=== PATIENT | male | born 1990 | race Two or more races ===

== ENCOUNTER 2020-11-20 12:13 | Emergency (ER) | payer OTHER ==
[~2020-11-20] VITALS: Ht 180.3 cm; Wt 113.4 kg
[~2020-11-20 12:13] MED LIST: CYCL10 PO; HYDACE5 PO; MAGCIT300 PO; Norco 5-325 Ta1 EACH PO; OMEP40CA12 PO; OXYACE5T PO; RANI150 PO
== END 2020-11-20 12:30 | disposition home or self-care (01) ==
LOC: ER 12:13
DX: S44.92XA Injury of unspecified nerve at shoulder and upper arm level, left arm, initial encounter (principal); G62.0 Drug-induced polyneuropathy; T50.B95A Adverse effect of other viral vaccines, initial encounter; M79.10 Myalgia, unspecified site; W46.0XXA Contact with hypodermic needle, initial encounter
CPT/HCPCS: 99283

== ENCOUNTER → 2021-09-17 | Outpatient (CLI) | payer OTHER | END | disposition home or self-care (01) | LOC: LAB 17:00 → LAB SHORT 17:00 | DX: L08.9 Local infection of the skin and subcutaneous tissue, unspecified (principal) | CPT/HCPCS: 87070; 87205 ==

== ENCOUNTER → 2022-03-14 | Outpatient (CLI) | payer OTHER | END | disposition home or self-care (01) | LOC: LAB SHORT 09:37 → LAB 09:37 | PROVIDERS: Family Medicine | DX: D35.01 Benign neoplasm of right adrenal gland (principal) | CPT/HCPCS: 81050 ==

== ENCOUNTER 2022-10-24 14:07 | Emergency (ER) | payer OTHER ==
[~2022-10-24] VITALS: Ht 182.9 cm; Wt 127.0 kg
[2022-10-24 14:14] VITALS: BP 144/96
[2022-10-24] MEDS ORDERED: Norco 5-325 Ta1 EACH PO (15:19)
== END 2022-10-24 15:30 | disposition home or self-care (01) ==
LOC: ER 14:07
DX: S93.401A Sprain of unspecified ligament of right ankle, initial encounter (principal); M25.561 Pain in right knee; W18.30XA Fall on same level, unspecified, initial encounter; Y99.0 Civilian activity done for income or pay
CPT/HCPCS: 73562-RT; 73610; 96372; 99283-25; J1885

== ENCOUNTER 2023-08-28 19:34 | Emergency (ER) | payer OTHER ==
[~2023-08-28] VITALS: Ht 180.3 cm; Wt 111.1 kg
[2023-08-28 20:27] LABS: BASOPHILS ABSOLUTE AUTO 0.03 K/mm3 (0.00-0.23); BASOPHILS PERCENT AUTO 0 % (0-2); EOSINOPHILS ABSOLUTE AUTO 0.06 K/mm3 (0.00-0.68); EOSINOPHILS PERCENT AUTO 1 % (0-6); Hematocrit 46.7 % (37.0-53.0); Hemoglobin 16.6 g/dL (13.5-17.5); IMMATURE GRAN ABSOLUTE AUTO 0.02 K/mm3 (0.00-0.10); IMMATURE GRAN PERCENT AUTO 0 % (0-1); LYMPHOCYTES ABSOLUTE AUTO 2.76 K/mm3 (0.84-5.20); LYMPHOCYTES PERCENT AUTO 28 % (21-46); MONOCYTES ABSOLUTE AUTO 0.71 K/mm3 (0.16-1.47); MONOCYTES PERCENT AUTO 7 % (4-13); Mean Corpuscular HGB 31.2 pg (26.0-34.0); Mean Corpuscular HGB Conc 35.5 g/dL (31.5-36.5); Mean Corpuscular Volume 88 fL (80-100); Mean Platelet Volume 12.1 fL (9.1-12.4); NEUTROPHILS ABSOLUTE AUTO 6.36 K/mm3 (1.96-9.15); NEUTROPHILS PERCENT AUTO 64 % (41-73); Platelet Count 260 K/mm3 (150-400); RDW Standard Deviation 42.2 fL (35.1-46.3); Red Blood Cell Count 5.32 M/mm3 (4.30-5.90); White Blood Cell Count 9.94 K/mm3 (4.00-11.30)
[2023-08-28] MEDS ORDERED: Mag Hydrox/AL Hydrox/Simeth 30 ML UDC PO ONE (20:45)
[2023-08-28] MEDS ORDERED: Atropine/Scopalam/Hyoscam/PB 5 ML UDC PO ONE (20:45)
[2023-08-28] MEDS ORDERED: Lidocaine 2% Viscous Soln 15 ML UDC PO ONE (20:45)
[2023-08-28 20:47] LABS: Albumin/Globulin Ratio 1.2 (0.8-1.8); Bilirubin, Total 2.5 mg/dL (0.1-1.0); Bun/Creatinine Ratio 9.2 (12.0-20.0); Calcium, Blood 9.3 mg/dL (8.5-10.1); Creatinine, Blood 0.87 mg/dL (0.60-1.20); Globulin, Blood 3.3 g/dL (2.2-4.0); Potassium, Blood 3.9 mmol/L (3.5-5.5); Total Protein, Blood 7.3 g/dL (6.4-8.2)
[2023-08-28 20:55] VITALS: BP 142/90
== END 2023-08-28 22:18 | disposition home or self-care (01) ==
LOC: ER 19:34
PROVIDERS: Physician Assistant
DX: K21.9 Gastro-esophageal reflux disease without esophagitis (principal); Z87.11 Personal history of peptic ulcer disease
CPT/HCPCS: 71046; 80053; 84484; 85025; 93005; 93010; 99284-25; A9270

== ENCOUNTER → 2023-11-13 | Outpatient (CLI) | payer OTHER ==
[2023-11-15 22:06] LABS: CREATININE,URINE - PER 24H 2363 mg/d (1000-2500); CREATININE,URINE - PER VOLUME 139 mg/dL; DOPAMINE,URINE - PER 24H 258 ug/d (71-485); DOPAMINE,URINE - PER VOLUME 152 ug/L; DOPAMINE,URINE - RATIO TO CRT 109 ug/g CRT (0-250); EPINEPHRINE,URINE - PER 24H 10 ug/d (1-14); EPINEPHRINE,URINE - PER VOLUME 6 ug/L; EPINEPHRINE,URN - RATIO TO CRT 4 ug/g CRT (0-20); HOURS COLLECTED 24 hr; NOREPINEPHRINE,UR - PER VOLUME 15 ug/L; NOREPINEPHRINE,URINE - PER 24H 26 ug/d (14-120); NOREPINEPHRINE,URN/CRT RATIO 11 ug/g CRT (0-45); TOTAL VOLUME 1700 mL
== END | disposition home or self-care (01) ==
LOC: LAB SHORT 07:19 → LAB 07:19 → LAB FUT 11-09 09:05 → EDSTATUS 11-09 09:05
PROVIDERS: Naturopath
DX: K21.9 Gastro-esophageal reflux disease without esophagitis (principal); F41.9 Anxiety disorder, unspecified; G47.10 Hypersomnia, unspecified; R63.5 Abnormal weight gain; R55 Syncope and collapse; R79.89 Other specified abnormal findings of blood chemistry
CPT/HCPCS: 82384; 83150; 84585

== ENCOUNTER 2024-04-19 09:31 | Emergency (ER) | payer OTHER ==
[~2024-04-19] VITALS: Ht 172.7 cm; Wt 83.9 kg
[2024-04-19 09:42] VITALS: BP 149/101
== END 2024-04-19 09:56 | disposition home or self-care (01) ==
LOC: ER 09:31
DX: M79.671 Pain in right foot (principal); F17.200 Nicotine dependence, unspecified, uncomplicated
CPT/HCPCS: 99283

== ENCOUNTER 2024-11-15 11:32 | Emergency (ER) | payer OTHER ==
[~2024-11-15] VITALS: Ht 180.3 cm; Wt 117.9 kg
[2024-11-15 11:38] VITALS: BP 145/98
[2024-11-15] MEDS ORDERED: Ondansetron 4 MG SoluTab SL ONE (12:10)
[2024-11-15] MEDS ORDERED: Dexamethasone Sod Phos 10 MG/ML 1ML VIAL PO ONE (13:30)
[2024-11-15] MEDS ORDERED: OXAYDO5 M1 PO (13:37)
== END 2024-11-15 14:02 | disposition home or self-care (01) ==
LOC: ER 11:32
DX: S99.921A Unspecified injury of right foot, initial encounter (principal); X58.XXXA Exposure to other specified factors, initial encounter
CPT/HCPCS: 73630; 99283-25; A9270; J1100